=== PATIENT | female | born 1960 | race Two or more races ===

== ENCOUNTER 2024-04-27 21:00 | Emergency (ER) | payer MEDICAID, SELFPAY ==
[2024-04-27 21:01] VITALS: BP 185/74; PULSE 80; RESP 17; TEMP 36.9; O2SAT 96
--- NOTE | 2024-04-27 21:23 | XR_ITS ---
Examination: CT brain head without contrast. 2-D sagittal coronal reconstructions Date and time of exam:May 07, 2024 at 2136 hrs. Indications: High blood pressure and headache onset today CTDI: vol (mGy):51.1 DLP: (mGycm):1021 Technique: Multiple CT axial sections of the brain have been obtained, 5 mm slice thickness. Contrast has not been administered. 2-D sagittal, coronal reconstructions have been obtained Low dose protocols were performed. One or more of the following dose reduction techniques were used; automated exposure control, adjustment of the mA and/or KV according to patient size, use of iterative reconstruction technique. Findings: No significant ventricular enlargement. Intra-axial or extra-axial hemorrhage density is not seen. No mass effect or midline shift Basal cisterns are not remarkable. Fourth ventricle is midline. Cranial vault intact. Impression: Negative for acute hemorrhage, mass effect or midline shift Acute right maxillary and sphenoid sinusitis
[2024-04-27 21:29] VITALS: BP 185/74; PULSE 80
[2024-04-27] MEDS: hydrALAZINE HCL 25 MG TABLET PO (21:29)
[2024-04-27] MEDS: METOCLOPRAMIDE 5 MG TABLET 10 MG PO (21:29)
[2024-04-27] MEDS: AMOXICILLIN/POT CLAV 875 TABLET 1 TAB PO (22:08)
[2024-04-27] MEDS: KETOROLAC INJ 60 MG/2 ML VIAL IM (22:08)
--- NOTE | 2024-04-28 01:36 | EDNOTE_ITS ---
ED Headache RME/HPI General Chief Complaint: Headache Stated Complaint: High BP, Headache Time Seen by Provider: 04/27/24 21:23 Arrival date/time: 04/27/24 21:00 63F with history of DM and HTN Presents to ED with 2 days of elevated BP, CARBALLO, and nasal congestion. Limitations: no limitations Related Data Previous Rx's ?Medication ?Instructions ?Recorded amoxicillin 875 mg-potassium 1 tab PO BID 7 days #14 tabs 04/27/24 clavulanate 125 mg tablet naproxen 500 mg tablet 500 mg PO BID PRN pain #30 tabs 04/27/24 Allergies Allergy/AdvReac Type Severity Reaction Status Date / Time No Known Allergies Allergy Verified 04/27/24 21:03 Review of Systems Review of Systems Systems Reviewed: All systems reviewed, normal except as documented Constitutional Constitutional: Reports system reviewed and no additional complaints, except as documented, Reports as per HPI, Denies fever(s) and Reports headache(s) ENT Ears, Nose, Mouth, and Throat: Denies disequilibrium and Reports headache(s) Cardiovascular Cardiovascular: Reports system reviewed and no additional complaints, except as documented, Denies chest pain and Denies dyspnea Respiratory Respiratory: Reports system reviewed and no additional complaints, except as documented, Denies cough and Denies dyspnea Gastrointestinal Gastrointestinal: Reports system reviewed and no additional complaints, except as documented, Denies abdominal pain, Denies nausea and Denies vomiting Neurologic Neurologic: Reports system reviewed and no additional complaints, except as documented, Denies confusion, Denies disequilibrium and Reports headache(s) Psychiatric Psychiatric: Denies confusion Past Medical History Social History SMOKING STATUS: Never smoker ED Exam General Limitations: Present no limitations General appearance: Present alert and in no apparent distress Head Head exam: Present atraumatic Eye Eye exam: Present normal appearance, PERRL and EOMI ENT ENT exam: Present normal exam, normal oropharynx and mucous membranes moist Neck Neck exam: Present normal inspection, full ROM and trachea midline Chest Chest inspection: Present normal inspection and symmetric chest wall rise Respiratory Respiratory exam: Present normal lung sounds bilaterally Cardiovascular Cardiovascular exam: Present regular rate, normal rhythm and normal heart sounds Abdominal Exam Abdominal exam: Present soft and normal bowel sounds Extremities Exam Extremities exam: Present normal inspection and full ROM Back Exam Back exam: Present normal inspection and full ROM Neurological Exam Neurological exam: Present alert, oriented X3 and CN II-XII intact Psychiatric Psychiatric exam: Present normal affect and normal mood Skin Skin exam: Present warm, dry, intact and normal color Course Quality Measures none Orders Category Date Time Status Bedside COVID-19 Antigen Test NOW Care 04/27/24 21:14 Completed Bedside Influenza A&B Antigen Test NOW Care 04/27/24 21:[address] head/brain wo con Stat Exams 04/27/24 21:23 Completed Amoxicillin/Pot Clav 875 [Augmentin 875] Med 04/27/24 22:04 Discontinued 1 tab PO X1 ONE Ketorolac Inj [Toradol Inj] Med 04/27/24 22:04 Discontinued 60 mg IM X1 ONE Metoclopramide [Reglan] Med 04/27/24 21:23 Discontinued 10 mg PO X1 ONE hydrALAZINE HCL [Apresoline] Med 04/27/24 21:23 Discontinued 25 mg PO X1 ONE Vital Signs Vital signs: Vital Signs Temperature 98.5 F 04/27/24 21:01 Pulse Rate 80 04/27/24 21:01 Respiratory Rate 17 04/27/24 21:01 Blood Pressure 185/74 H 04/27/24 21:01 Pulse Oximetry (%) 96 04/27/24 21:01 Oxygen Delivery Method Room Air 04/27/24 21:01 O2 at 96% on RA and WNLs Headache MDM Narrative MDM Narrative:: 63F with history of DM and HTN Presents to ED with 2 days of elevated BP, CARBALLO, and nasal congestion. ' Physical exam reveals normal pupil response and EOM. ENT clear. Patient is afebrile, alert, but appears to be in pain. CT sinusitis. Meds given. Patient data External records reviewed:: None Clinical information provided by:: patient Social determinants that could affect healthcare access:: none Patient has the following chronic illnesses:: HTN and DM How is presenting disease/condition affected by chronic disease/condition?: exacerbated by Evaluation data The following diagnostics were reviewed and interpreted by me:: radiology exam(s) Lab and/or radiology exams considered but not ordered:: ordered Interpretation Summary: above Medications / Prescriptions Medications or Prescriptions considered but not ordered:: ordered Medication administrations:: Medication Administration History Discontinued Medications Amoxicillin/Clavulanate Potassium (Amoxicillin/Pot Clav 875 Tablet) 1 tab PO X1 ONE Stop: 04/27/24 22:05 Last Admin: 04/27/24 22:08 Dose: 1 tab Documented By: GENEVA Hydralazine HCl (Hydralazine Hcl 25 Mg Tablet) 25 mg PO X1 ONE Stop: 04/27/24 21:24 Last Admin: 04/27/24 21:29 Dose: 25 mg Documented By: GENEVA Ketorolac Tromethamine (Ketorolac Inj 60 Mg/2 Ml Vial) 60 mg IM X1 ONE Stop: 04/27/24 22:05 Last Admin: 04/27/24 22:08 Dose: 60 mg Documented By: GENEVA Metoclopramide HCl (Metoclopramide 5 Mg Tablet) 10 mg PO X1 ONE Stop: 04/27/24 21:24 Last Admin: 04/27/24 21:29 Dose: 10 mg Documented By: GENEVA above Consultations Consultation(s) initiated? (list below): No Diagnosis Differential diagnosis headache: migraine, tension headache, subarachnoid hemorrhage, headache, meningitis, sinusitis and postconcussion syndrome Most likely diagnosis given after review of the tests above:: sinusitis Admission Indicated Admission indicated?: not indicated Admission Request Was there a request for admission?: No Disposition Plan Disposition Plan: Discharge Discharge Attestation Discharge Attestation: The patient and all family members were given an opportunity to ask questions and understood the discharge instructions. Discharge instructions specifically effects, indications for sooner follow up or return to the emergency department, and the expected course of current diagnosis. Patient condition: Stable Discharge Plan Plan Patient Disposition: HOME (Self Care) Disposition Comment: Stable Prescriptions/Referrals Prescriptions/Med Rec: New naproxen 500 mg tablet 500 mg PO BID PRN (Reason: pain) Qty: 30 0RF amoxicillin-pot clavulanate 875-125 mg tablet 1 tab PO BID 7 Days Qty: 14 0RF Problem List Clinical Impression: Sinusitis Patient/Caregiver Discharge Instructions Education Materials: ED Sinusitis (Antibiotic Treatment) Additional Instructions: Please follow-up with PCP within 24-48 hours and return immediately if symptoms worsen. Print Language: Greenlandic Stand Alone Forms: Patient Portal Info Letter JENELLE/ALEJANDRO Supervising Physician JENELLE/ALEJANDRO Supervising Physician: Dr. Iniguez
== END 2024-04-28 01:20 | disposition home or self-care (01) ==
LOC: SERX 22:22
PROVIDERS: Emergency Provider Emergency Medicine
DX: J32.9 Chronic sinusitis, unspecified (principal); E11.9 Type 2 diabetes mellitus without complications; I10 Essential (primary) hypertension
CPT/HCPCS: 70450; 87400; 87811; 96372; 99284; J1885; A9270